=== PATIENT | male | born 1955 | race Two or more races ===

== ENCOUNTER → 2017-04-25 | Outpatient (CLI) | payer OTHER ==
--- NOTE | 2017-04-26 08:29 | KCIC ---
MRI lumbar spine without contrast April 25, 2017 INDICATION: Right radiculopathy COMPARISON: None available TECHNIQUE: Multiplanar, multisequence MR imaging of the lumbar spine was performed without intravenous contrast. FINDINGS: Alignment of the lumbar spine is normal. Schmorl's nodes are identified involving the inferior endplate of T12, superior endplate of L1, superior endplate of L2 and superior endplate of L3. There is an osseous hemangioma involving the left aspect of the L4 vertebral body. Additional osseous hemangiomas are identified involving and L1. There is edema involving the anterior inferior right L2 endplate with associated anterior marginal osteophytosis. There is disc desiccation at L3-L4, L4-L5 and L5-S1. The conus terminates at T12-L1. Distal cord signal is normal on all sequences. 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 Visualized portions of the retroperitoneum are within normal limits. Abdominal aorta is normal in course and caliber as visualized. L2-L3: Disc is normal in configuration. There is mild facet arthropathy. No neuroforaminal or spinal canal stenosis. L3-L4: There is a disc bulge. Mild facet arthropathy with ligamentum flavum infolding. Mild left and moderate right neural foraminal stenosis. Mild spinal canal stenosis. L4-L5: There is diffuse disc bulge. Moderate facet arthropathy. Moderate bilateral neural foraminal stenosis. Mild spinal canal stenosis. L5-S1: There is disc bulge with central disc protrusion. Moderate facet arthropathy. Moderate, left greater than right, neural foraminal stenosis. No spinal canal stenosis. IMPRESSION: 1. There is nonspecific endplate edema involving the anterior inferior right L2 endplate. Findings may be seen in the setting of early degenerative disc disease as there is associated anterior marginal osteophytosis. 2. 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 Mild degenerative changes are noted, as detailed above. Electronically signed by: Argentina Galvan MD (04/26/2017 8:26 AM) [facility]
== END | disposition home or self-care (01) ==
LOC: KCIC MRI 17:01
PROVIDERS: ATTEND Family Medicine
DX: M54.16 Radiculopathy, lumbar region (principal); M51.46 Schmorl's nodes, lumbar region; R60.9 Edema, unspecified
CPT/HCPCS: 72148

== ENCOUNTER → 2017-06-30 | Outpatient (CLI) | payer OTHER ==
[~2017-06-30] MED LIST: HYDR-2758 PO; IOHEXOL 180 MG/ML 10 ML VIAL. ONE; LISI10TA2 PO; MELO7.5T29 PO; METH-37 PO; methylPREDNISolone ACETATE 40 MG/ML VIAL. ONE; methylPREDNISolone ACETATE 80 MG/ML VIAL. ONE
--- NOTE | 2017-06-30 14:51 | PAIN ---
DATE OF SERVICE: 06/30/2017 INITIAL CONSULTATION CHIEF COMPLAINT: Low back and right lower extremity pain. HISTORY OF PRESENT ILLNESS: This is a 62-year-old male who presents with history of pain in the low back and right leg for about 2 months. He was without any specific injury or accident he is aware of. He was at work driving a forklift, noticed the pain was increasing in the low back and right lower extremity and radiating to the posterior gluteus, posterior thigh, posterior calf on the right side only. The patient reports since that time it has been getting worse. He has been off work as his primary care physician took him off work about 6 weeks ago with the pain increasing. The patient did have an MRI scan of the lumbar spine showing a disk bulge or central disk protrusion at L5-S1, moderate facet arthropathy and moderate left greater than right neuroforaminal stenosis, L4-L5 showing moderate facet arthropathy and diffuse disk bulge as well with moderate bilateral neuroforaminal stenosis with L3-L4 mild left and moderate right neuroforaminal stenosis and disk bulge as well. The patient reports that he has had exercises done on his own and has not had any formal physical therapy at this time or any formal chiropractic treatments or other modalities. He has been doing some stretching and trying to walk on his own. It is becoming more and more difficult. Since he has been off work he has not been doing much activity at all because the pain has been getting more severe. The patient reports it is constant, sharp, stabbing, radiating, aching, sometimes burning and intermittent, worse with standing, walking, changing positions, it has been awakening him from sleep as well 2-3 times a night. The patient reports it has not affected his bowel or bladder control, but does affect his ability to walk with significant fatigability of the right lower extremity. The patient rates his disability rate from 0-10, 10 being the worst, as a 5 with family home responsibilities, 10 with recreation, 8 with social activity and sexual behavior, 7 with occupation, 6 with self care and 3 with life support activities. PAST MEDICAL HISTORY: Significant for hypertension, hearing loss in the left ear, gastroesophageal reflux, arthritis. PAST SURGICAL HISTORY: No previous surgery. CURRENT MEDICATIONS: Include lisinopril, methocarbamol, muscle relaxants, hydrocodone and meloxicam. ALLERGIES: The patient has no known drug allergies. FAMILY HISTORY: Significant for cancer in the patient's father. SOCIAL HISTORY: The patient does not drink, does not smoke. , lives with his spouse, has one child living at home. Again, his occupation is a concrete mixing truck driver. He has been off work for 6 weeks now because of the pain. REVIEW OF SYSTEMS: The patient's review of systems is positive for those items mentioned in history of present illness. All systems reviewed and otherwise negative. It is complete, full and well documented on the patient's chart. PHYSICAL EXAMINATION: VITAL SIGNS: The patient's blood pressure 131/83, pulse 72, respirations are 16, temperature 98.0 degrees Fahrenheit, weight is 214 pounds, height is 5 feet 8 inches. GENERAL: The patient is awake, alert, oriented, appropriate, very pleasant demeanor. HEENT: Head shows normocephalic, atraumatic. The patient wears eye glasses. Extraocular movements are intact, symmetrical. Oral cavity: Mucous membranes moist and pink. Dentition is intact. NECK: Shows anterior throat supple without palpable lymphadenopathy noted. Swallow reflex is symmetrical. CHEST: Shows normal with inspection. Breath sounds clear to auscultation bilaterally. HEART: Shows S1, S2 clear. No murmurs auscultated. ABDOMEN: Soft, nontender, nondistended. No palpable organomegaly noted. No rebound or guarding demonstrated. BACK: Shows spine grossly in the midline with normal appearing thoracic kyphosis and lumbar lordotic curvature. No previous bruises, lesions, rashes or scars are noted. Lumbar paraspinous muscle shows symmetrical on inspection, with palpation show some moderate tenderness bilaterally in the low lumbar distribution, but only diffusely without specific radiation, atrophy, hypertrophy, no trigger points identified. No tenderness over the sacrum or sacroiliac regions. No tenderness over the spinous processes. The patient has good rotational motion both laterally greater than 10 degrees right and left as well as extension greater than 10 degrees, forward flexion 45 degrees without significant pain reported. EXTREMITIES: The patient's lower extremities show deep tendon reflexes at 2+ in the patellar and 1+ tendo calcaneus tendons. Motor exam is approximately 4 on a scale of 5 with right dorsiflexion, extension, and 5/5 on the left. Straight leg raise noted to be mildly positive on the right side at about 35-40 degrees with decrease with knee flexion. Left side is negative. Gaenslen's and Quan maneuvers are negative bilaterally as well. Peripheral pulses are 1+ posterior tibial and dorsalis pedis pulses. No peripheral edema is noted. The patient is able to stand, stand on his toes without difficulty or loss of balance, walks with a slight favoring gait, favoring the right lower extremity with ambulation, not using any assistive devices such as canes or walkers to ambulate. IMPRESSION: 1. This is a 62-year-old male with about 2-month history of increasing pain in the low back, right lower extremity in radicular fashion. 2. MRI scan of the lumbar spine as noted. 3. Hypertension. 4. Arthritis. 5. Gastroesophageal reflux. PLAN: Options were discussed with the patient including conservative medical management, physical therapy, interventional techniques. He elected to proceed with interventional techniques. We discussed a lumbar epidural steroid injection using description as well as anatomical models to describe the procedure. Risks were then discussed including, but not limited to bleeding, infection, possibility of epidural hematoma, subsequent neurological compromise, dural puncture headaches, spinal cord and/or nerve damage, side effects of steroid medication and poor results regarding pain control. The patient understands and wished to proceed. The patient to return to clinic in approximately 2 weeks for followup. He was counseled on return appointment, activity level and side effects to be aware of. DIAGNOSES: Lumbar radiculopathy with lumbar spinal stenosis, lumbar degenerative disk disease. PROCEDURE: Lumbar epidural steroid injection, translaminar approach at the L5-S1 level using C-arm fluoroscopic guidance under sterile prep and drape using local anesthetic. MEDICATION INJECTED: A total of 120 mg Depo-Medrol plus 10 mL of preservative-free normal saline and 2 mL of Isovue for contrast. CONDITION AT DISCHARGE: Stable. The patient tolerated the procedure well, had no complications. LIVAN SERRANO MD DR: DICK/linette JOB#: [id number] / [id number] EVAN Matthews MD
== END | disposition home or self-care (01) ==
LOC: PNCL 08:24
PROVIDERS: ATTEND Anesthesiology
DX: M51.16 Intervertebral disc disorders with radiculopathy, lumbar region (principal); M48.061 Spinal stenosis, lumbar region without neurogenic claudication; H91.90 Unspecified hearing loss, unspecified ear; I10 Essential (primary) hypertension; M19.90 Unspecified osteoarthritis, unspecified site; K21.9 Gastro-esophageal reflux disease without esophagitis
CPT/HCPCS: 62323; J1030; J1040

== ENCOUNTER → 2017-07-15 | Outpatient (CLI) | payer OTHER ==
--- NOTE | 2017-07-15 11:34 | PAIN ---
DATE OF SERVICE: 07/15/2017 DIAGNOSES: Lumbar radiculopathy with lumbar spinal stenosis, lumbar degenerative disk disease. HISTORY OF PRESENT ILLNESS: The patient is a 62-year-old male who returns for followup status post lumbar epidural steroid injection x 1. The patient reports about 95% better after the first injection, significantly improved on the right leg. The left leg still some pain in the posterior gluteus, posterior thigh and calf, radiating with activity, but much improved from previous. The patient reports he is very pleased with his progress. He has been increasing his activity, has been back to work. He has been careful with his back as far as lifting and twisting mechanisms and motions using his leg a bit better than his back. He is overall feeling much better. The patient is sleeping well at night, has no new motor or sensory deficits or other complaints. The patient reports his pain is a 5 on a scale of 10 at its worst and least and its average and is a 5 today. Essentially only in the left side at this time across the low back, posterior gluteus on the left, posterior left thigh and calf, as an aching, dull, burning, occasionally with a shooting pain, but is essentially there constantly. The patient reports no other changes. PHYSICAL EXAMINATION: VITAL SIGNS: Today, the patient's blood pressure is 138/109, pulse 71, respirations are 18, temperature 97.8 degrees Fahrenheit, weight is 214 pounds. GENERAL: The patient is awake, alert, oriented, appropriate, very pleasant demeanor. HEENT: Head shows normocephalic, atraumatic. Extraocular movements are intact, symmetrical. Oral cavity, mucous membranes are moist and pink. Dentition is intact. NECK: Shows anterior throat supple without palpable lymphadenopathy noted. Swallow reflex symmetrical. CHEST: Normal with inspection. Breath sounds are clear to auscultation bilaterally. HEART: Shows S1, S2 clear. No murmurs auscultated. ABDOMEN: Soft, nontender, nondistended. No palpable organomegaly. No rebound or guarding demonstrated. BACK: Shows spine grossly in midline with a normal appearing thoracic kyphosis and lumbar lordotic curvature. Lumbar paraspinous muscle shows symmetrical on inspection with palpation shows some mild tenderness in the low lumbar distribution, but only diffusely in the lumbar inferior aspect and without radiation. The patient has good rotational motion both laterally as well as extension and flexion without difficulty. No tenderness over the sacrum or sacroiliac regions. EXTREMITIES: Lower extremities show deep tendon reflexes at 2+ in the patellar, 1+ talocalcaneal tendons. Motor exam is approximately 4 on a scale 5 with right dorsiflexion, extension, 5/5 on the left, but intact. Peripheral pulses are 2+ posterior tibial and no peripheral edema is noted bilaterally. Options were discussed with the patient. The patient's old chart was reviewed. His current medication regimen updated. Current review of systems updated today as well. We will proceed with a second in the series of lumbar epidural steroid injection today with fluoroscopic guidance. Risks were again discussed including, but not limited to bleeding, infection, possibility of epidural hematoma, subsequent neurologic compromise, dural puncture, headaches, spinal cord and/or nerve damage, side effects of steroid medication and poor results regarding pain control. The patient understands and wished to proceed. The patient to return to clinic in approximately 2 weeks for followup. She was counseled to return appointment, activity level and side effects to be aware of. DIAGNOSES: Lumbar radiculopathy with lumbar degenerative disk disease, lumbar spinal stenosis. PROCEDURE: Lumbar epidural steroid injection, translaminar approach, L5-S1 level using C-arm fluoroscopic guidance under sterile prep and drape using local anesthetic. MEDICATION INJECTED: A total of 120 mg Depo-Medrol, plus 10 mL of preservative-free normal saline and 2 mL of Isovue for contrast. CONDITION AT DISCHARGE: Stable. The patient tolerated procedure well, had no complications. LIVAN SERRANO MD DR: DICK/linette JOB#: [id number] / [id number]
== END | disposition home or self-care (01) ==
LOC: PNCL 07:42
PROVIDERS: ATTEND Anesthesiology
DX: M51.16 Intervertebral disc disorders with radiculopathy, lumbar region (principal); M48.061 Spinal stenosis, lumbar region without neurogenic claudication
CPT/HCPCS: 62323; J1030; J1040

== ENCOUNTER → 2019-03-14 | Outpatient (CLI) | payer BC ==
[~2019-03-14] MED LIST changes: -HYDR-2758 PO; +HYDR-2761 PO; -IOHEXOL 180 MG/ML 10 ML VIAL. ONE; -methylPREDNISolone ACETATE 40 MG/ML VIAL. ONE; -methylPREDNISolone ACETATE 80 MG/ML VIAL. ONE
--- NOTE | 2019-03-14 13:26 | KCIC ---
STUDY: MRI of the right knee without contrast INDICATION: Medial knee pain. No known injury. COMPARISON: None. TECHNIQUE: Multiplanar MR imaging of the right knee performed without the use of intravenous or intra-articular contrast. FINDINGS: Mildly degraded study secondary to motion artifact. Menisci: Complex tearing of the medial meniscus body, posterior horn and root with a degree of maceration involving the posterior horn and root. Small amount of displaced meniscal tissue into the meniscotibial recess at the anterior body/horn junction, image 15 series 7. Multifocal associated parameniscal cyst formation along the medial gutter. The lateral meniscus is intact. Cruciate ligaments: Intact ACL and PCL. Collateral ligaments: Bowing of the MCL due to underlying meniscal injury and parameniscal cyst formation. No acute injury of the MCL complex. The lateral collateral ligamentous structures are intact. Tendons: The extensor tendon complex is intact, as are the additional tendons at the knee. Cartilage: Patellofemoral: Some chondral heterogeneity and thinning at the inferior aspect of the patella median ridge. Heterogeneity at the far lateral aspect of the lateral facet. Fissuring at the inferior trochlear groove with subchondral edema. Lateral compartment: Chondral heterogeneity and some thinning at the far posterior nonweightbearing lateral femoral condyle. No full-thickness chondral defect seen at the weightbearing aspect. Medial compartment: Chondral thinning at the periphery of the weightbearing medial compartment with faint subchondral marrow edema. Chondrosis at the posterior nonweightbearing aspect of the medial femoral condyle with thinning and fissuring as well as as some subchondral edema/cystic change, image 13 series 4. Bones: No acute fracture or aggressive marrow signal. Miscellaneous: Moderate volume knee joint effusion. Some edema of Hoffa's fat. IMPRESSION: 1. Extensive complex tearing of the medial meniscus involving the body, posterior horn and root with a degree of maceration at the posterior horn and root. Associated multifocal parameniscal cyst formation and there is some displaced meniscal tissue into the meniscotibial recess at the anterior body/horn junction. The lateral meniscus is intact. 2. Tricompartmental chondrosis most notable at the far medial aspect of the weightbearing medial compartment with some subchondral edema. Chondral loss at the posterior nonweightbearing medial more so than lateral femoral condyles as well as some mild patellofemoral compartment chondrosis, as above. 3. Moderate volume knee joint effusion. 4. Some nonspecific edema of Hoffa's fat as can be seen with Hoffitis. Electronically signed by: KAYLA RIOS MD (03/14/2019 1:23 PM) [id number]
== END | disposition home or self-care (01) ==
LOC: KCIC MRI 10:48
PROVIDERS: ATTEND Orthopaedic Surgery
DX: S83.231A Complex tear of medial meniscus, current injury, right knee, initial encounter (principal); M25.461 Effusion, right knee; M25.861 Other specified joint disorders, right knee; X58.XXXA Exposure to other specified factors, initial encounter; Y93.89 Activity, other specified; Y92.89 Other specified places as the place of occurrence of the external cause; Y99.8 Other external cause status
CPT/HCPCS: 73721

== ENCOUNTER → 2019-03-21 | Outpatient (CLI) | payer BC ==
--- NOTE | 2019-03-21 15:44 | KCIC ---
MR of the left shoulder HISTORY: Left shoulder pain for several years. Painful range of motion. TECHNIQUE: Routine multiplanar sequences are obtained. FINDINGS: Acromioclavicular joint is mildly degenerative with mild hypertrophy. Mild edema at the joint. Mild to moderate motion degradation on exam. No evidence of a rotator cuff tear. No significant subdeltoid bursal fluid. No significant glenohumeral joint effusion. No advanced degenerative change. Limited labrum exam due to the motion degradation but no definite detachment or tear. Biceps tendon appears intact. No bone destruction. No acute fracture. Moderate muscle atrophy and fatty infiltration of the infraspinatus and teres minor muscle. IMPRESSION: 1. Acromioclavicular joint degenerative change. 2. No evidence of rotator cuff tear. 3. Moderate atrophy/fatty infiltration of the infraspinatus and teres minor muscles, could be due to chronic denervation. Electronically signed by: Scooter Pagan MD (03/21/2019 3:41 PM) [facility]
== END | disposition home or self-care (01) ==
LOC: KCIC MRI 14:15
PROVIDERS: ATTEND Orthopaedic Surgery
DX: M25.412 Effusion, left shoulder (principal); M24.812 Other specific joint derangements of left shoulder, not elsewhere classified
CPT/HCPCS: 73221

== ENCOUNTER 2019-07-13 05:54 | Day surgery (SDC) | payer BC ==
[~2019-07-13] VITALS: Ht 170.2 cm; Wt 99.0 kg
[2019-07-13] MEDS ORDERED: LISI2.5T PO (06:43)
[2019-07-13] MEDS ORDERED: PANT40TA77 PO (06:44)
[2019-07-13] MEDS ORDERED: PROPOFOL 20 ML IV ONE (06:44)
[2019-07-13] MEDS ORDERED: PRAV40TA2 PO (06:44)
[2019-07-13] MEDS ORDERED: LIDOCAINE 2% PF 5 ML VIAL. ONE (06:44)
[2019-07-13] MEDS ORDERED: DEXAMETHASONE SOD PHOS 4 MG/ML VIAL ONE (06:45)
[2019-07-13] MEDS ORDERED: ONDANSETRON PF 4 MG/2 ML VIAL. ONE (06:45)
[2019-07-13] MEDS ORDERED: ONDANSETRON PF 4 MG/2 ML VIAL. IV PRN (07:00)
[2019-07-13] MEDS ORDERED: PROCHLORPERAZINE 10 MG/2 ML VIAL. IV PRN (07:00)
[2019-07-13] MEDS ORDERED: fentaNYL PF VIAL 100 MCG/2 ML VIAL IV PRN ×2 (07:00)
[2019-07-13] MEDS ORDERED: MORPHINE SULFATE 2 MG/ML VIAL. IV PRN (07:00)
[2019-07-13] MEDS ORDERED: HYDROmorphone 2 MG/ML VIAL IV PRN (07:00)
[2019-07-13] MEDS ORDERED: IV RINGERS,LACTATED 1000ML 1,000 ML IV SCH (07:00)
[2019-07-13] MEDS ORDERED: MIDAZOLAM HCL/PF 2 MG/2 ML VIAL. ONE (07:14)
[2019-07-13] MEDS ORDERED: fentaNYL PF VIAL 250 MCG/5 ML VIAL ONE (07:14)
[2019-07-13] MEDS ORDERED: HYDR-3165 PO (07:30)
--- NOTE | 2019-07-13 07:31 | DISCH ---
DISCHARGE INSTRUCTIONS Condition on Discharge Condition on Discharge: Stable Activity After Discharge Activity Instructions for Disc: Other, see below (slow advance to activity as symptomatically tolerated) Weight Bearing Status after Di: As tolerated Diet after Discharge Diet after Discharge: Regular Wound Incision Care Wound/Incision Care: Change dressing (remove dressing in 2 days may then shower no soaking until sutures removed) Contacting the after DC Call your doctor for: Concerns you may have Follow-Up Follow up with: Dr. Shea 10 days RA SHEA MD Jul 13, 2019 07:31
[2019-07-13] MEDS ORDERED: BUPIVACAINE-EPI 0.5%-1:200000 MPF 30 ML VIAL. INJ ONE (08:00)
[2019-07-13] MEDS ORDERED: KETOROLAC 30 MG/ML VIAL. ONE (08:12)
[2019-07-13] MEDS ORDERED: SEVOFLURANE 31 TO 60 MINUTES. IH ONE (08:35)
--- NOTE | 2019-07-13 08:35 | PDOC4 ---
Operative Note Operative Note Date of surgery: 07/13/2019 Preoperative diagnosis: Medial meniscus tear right knee Postoperative diagnosis: Same Operative procedure: Right knee arthroscopy partial medial meniscectomy Surgeon: Shabbir Anesthesia: Gen. Estimated blood loss: 5 mL Complications: None Operative indications: Please see my orthopedic clinic note for detailed operative indications and note that he was having sharp medial sided knee pain and swelling particularly with pivoting twisting activities MRI was consistent with his clinical picture showing a posterior horn tear of the medial meniscus. I had gone over with him the structure and function of the meniscus the poor blood supply to the inside of the meniscus and the general treatment options both nonoperatively and operatively including the possibility of arthroscopic debridement getting back to stable tissue and the inability of that treatment to undergo any treatment for degenerative type changes which might be causing also of his pain which are thought to be minimal based on the MRI. However there are risks of infection continued pain nerve or blood vessel damage medical or other anesthetic complications among others all his questions were answered he wishes to proceed with surgical evaluation and treatment. Operative text: Patient was identified procedure verified patient placed in the supine position on the operative table. After adequate amounts of general anesthesia were administered the right lower extremity was prepped and draped in standard sterile fashion with a thigh tourniquet. After timeout was performed patient procedure identified and verified the right lower extremity was examined by Esmarch bandage tourniquet inflated to 250 Kenan is mercury a lateral portal was established a medial portal established using spinal needle localization and the knee joint was systematically examined. He was noted to have good patellofemoral tracking and minimal chondromalacia no loose bodies in the gutters or suprapatellar pouch he did have a displaceable tear of the junction of the body and posterior horn of the medial meniscus which was trimmed back to stable tissue with arthroscopic punch and shaver he had minimal chondromalacia in the medial weightbearing surface ACL and lateral compartment cartilage were likewise intact as was the lateral meniscus to palpation. The joint was drained of arthroscopic fluid portal areas were injected with 20 mL of half percent plain Marcaine portals closed with nylon suture sterile dressings were applied patient was returned recovery room in stable condition having tolerated procedure well toes were noted be warm pink find deflation of the tourniquet RA TURNER MD Jul 13, 2019 08:35
[2019-07-13] MEDS ORDERED: HYDROcodone/APAP 7.5/325MG 1 TAB TABLET PO ONE (09:00)
[2019-07-13 09:03] VITALS: BP 132/82
== END 2019-07-13 09:25 | disposition home or self-care (01) ==
LOC: SURG 05:54
PROVIDERS: ATTEND Orthopaedic Surgery
DX: S83.241A Other tear of medial meniscus, current injury, right knee, initial encounter (principal); M94.261 Chondromalacia, right knee; E66.9 Obesity, unspecified; I10 Essential (primary) hypertension; E78.00 Pure hypercholesterolemia, unspecified; K21.9 Gastro-esophageal reflux disease without esophagitis; Z68.34 Body mass index [BMI] 34.0-34.9, adult; X58.XXXA Exposure to other specified factors, initial encounter; Y93.89 Activity, other specified; Y92.89 Other specified places as the place of occurrence of the external cause; Y99.8 Other external cause status; Z87.891 Personal history of nicotine dependence; Z72.89 Other problems related to lifestyle; Z87.39 Personal history of other diseases of the musculoskeletal system and connective tissue
CPT/HCPCS: 29881; A7015; C1782; J0696; J1100; J1885; J2001; J2250; J2405; J2704; J3010; J3490

== ENCOUNTER → 2019-07-23 | Outpatient (CLI) | payer BC ==
[2019-07-13 09:03] VITALS: BP 132/82
[~2019-07-23] MED LIST changes: +HYDR-3165 PO; +IOHEXOL 180 MG/ML 10 ML VIAL. ONE; +LISI2.5T PO; +PANT40TA77 PO; +PRAV40TA2 PO; +methylPREDNISolone ACETATE 40 MG/ML VIAL. ONE; +methylPREDNISolone ACETATE 80 MG/ML VIAL. ONE
--- NOTE | 2019-07-23 11:17 | PAIN ---
DATE OF SERVICE: 07/23/2019 PROGRESS NOTE FOR PAIN CLINIC DIAGNOSES: Lumbar radiculopathy with lumbar degenerative disk disease, lumbar spinal stenosis. HISTORY OF PRESENT ILLNESS: The patient is a 64-year-old male who returns for followup status post previous lumbar epidural steroid injections about 2 years ago, last seen 07/15/2017. The patient did very well with near 100% improvement for about 9 months following his second injection. The patient reports the pain is returning now over the past few months to 6 months or so in the low back itself, somewhat more on the left than the right lower extremity, mostly in the posterior gluteus, posterior thighs, posterior calf, but mainly in the low back. The patient reports that 9 on a scale of 10 at its worst, 8 on average, 7 at its least over the past week. The patient reports it is aching, sharp, tight, becoming more constant and more severe. Initially was doing much better with increased activity, distance walking, doing work activities, household activities, sleeping better at night, still sleeps well at night without any awakening from sleep from the pain. The patient reports no new motor or sensory deficits, no new bowel or bladder incontinence or other complaints. PHYSICAL EXAMINATION: VITAL SIGNS: The patient's blood pressure 131/82, pulse 61, respirations 18, temperature 98.4 degrees Fahrenheit, weight is 200 pounds. GENERAL: The patient is awake, alert, oriented, appropriate, very pleasant demeanor. HEENT: Shows normocephalic, atraumatic. Extraocular movements are intact and symmetrical. Oral cavity: Mucous membranes moist and pink. Dentition is intact. NECK: Shows anterior throat supple without palpable lymphadenopathy noted. Swallow reflex symmetrical. CHEST: Shows normal on inspection. Breath sounds are clear bilaterally. HEART: Shows S1, S2 clear. No murmurs auscultated. ABDOMEN: Soft, obese, nontender, nondistended. BACK: Shows spine grossly in the midline. Normal appearing thoracic kyphosis and some minor flattening of lumbar lordotic curvature. Lumbar paraspinous muscle shows symmetrical on inspection, on palpation shows some moderate tenderness diffusely, but only diffusely without significant radiation. The patient shows good rotational motion of lumbar spine, both laterally as well as extension and flexion without significant difficulty. Peripheral pulses are 1+, posterior tibia. No peripheral edema is noted bilaterally. PLAN: Options were discussed with the patient. The patient's old chart was reviewed as her current medication regimen updated. Current review of systems updated today as well. We will proceed with lumbar epidural steroid injections, the first in this series with fluoroscopic guidance. Risks were again discussed including, but not limited to bleeding, infection, possibility of epidural hematoma, subsequent neurological compromise, dural puncture, headaches, spinal cord and/or nerve damage, side effects of steroid medication and poor results regarding pain control. The patient understands and wished to proceed. The patient will return to clinic in approximately 2 weeks for followup, was counseled on return appointment, activity level and side effects to be aware of. DIAGNOSIS: Lumbar radiculopathy with lumbar degenerative disk disease, lumbar spinal stenosis. PROCEDURE: Lumbar epidural steroid injection, translaminar approach at L5-S1 level using C-arm fluoroscopic guidance under sterile prep and drape using local anesthetic. MEDICATION INJECTED: A total of 120 mg Depo-Medrol plus 10 mL of preservative-free normal saline and 2 mL of contrast. CONDITION AT DISCHARGE: Stable. The patient tolerated the procedure well, had no complications. LIVAN SERRANO MD DR: DICK/linette JOB#: [id number] / [id number]
== END ==
LOC: PNCL 09:26
PROVIDERS: ATTEND Anesthesiology
DX: M51.16 Intervertebral disc disorders with radiculopathy, lumbar region (principal); M48.061 Spinal stenosis, lumbar region without neurogenic claudication
CPT/HCPCS: 62323; J1030; J1040; Q9965

== ENCOUNTER → 2019-07-27 | Outpatient (CLI) | payer BC ==
[2019-07-13 09:03] VITALS: BP 132/82
[~2019-07-27] MED LIST changes: -IOHEXOL 180 MG/ML 10 ML VIAL. ONE; -methylPREDNISolone ACETATE 40 MG/ML VIAL. ONE; -methylPREDNISolone ACETATE 80 MG/ML VIAL. ONE
[2019-07-27 10:29] LABS: BASO # 0.1 x10^3/uL (0.0-0.2); BASO % 1 % (0-3); EOS % 0 % (0-3); HEMATOCRIT 41.5 % (39.0-53.0); HEMOGLOBIN 13.9 g/dL (13.0-17.5); LYMPH # 2.3 x10^3/uL (1.0-4.8); LYMPH % 21 % (24-48); MEAN CORPUSCULAR HEMOGLOBIN 30 pg (25-35); MEAN CORPUSCULAR HGB CONC 34 g/dL (31-37); MEAN CORPUSCULAR VOLUME 89 fL (79-100); MONO # 0.8 x10^3/uL (0.0-1.1); MONO % 8 % (0-9); NEUT # 7.5 x10^3/uL (1.8-7.7); NEUT % 70 % (31-73); PLATELET COUNT 370 x10^3/uL (140-400); RED BLOOD COUNT 4.65 x10^6/uL (4.30-5.70); WHITE BLOOD COUNT 10.7 x10^3/uL (4.0-11.0)
[2019-07-27 10:43] LABS: ALBUMIN 3.9 g/dL (3.4-5.0); ALBUMIN/GLOBULIN RATIO 1.1 (1.0-1.7); CREATININE 0.9 mg/dL (0.7-1.3); GFR 85.5; POTASSIUM 4.2 mmol/L (3.5-5.1); TOTAL BILIRUBIN 0.3 mg/dL (0.2-1.0); TOTAL PROTEIN 7.5 g/dL (6.4-8.2)
[2019-07-27 10:47] LABS: CHOLESTEROL/HDL RATIO 5.9
== END | disposition home or self-care (01) ==
LOC: LAB 10:01
PROVIDERS: ATTEND Family Medicine
DX: Z12.5 Encounter for screening for malignant neoplasm of prostate (principal); I10 Essential (primary) hypertension; E78.00 Pure hypercholesterolemia, unspecified
CPT/HCPCS: 36415; 80053; 80061; 84153; 85025; G0103